=== PATIENT | female | born 1930 | race Caucasian/White ===

== ENCOUNTER 2018-05-04 14:55 | Emergency (ER) | payer OTHER ==
[~2018-05-04 14:55] MED LIST: LEVO25TA9 PO
== END 2018-05-04 17:17 | disposition home or self-care (01) ==
LOC: EDH 14:55
DX: S63.91XA Sprain of unspecified part of right wrist and hand, initial encounter (principal); S51.811A Laceration without foreign body of right forearm, initial encounter; I48.91 Unspecified atrial fibrillation; I50.9 Heart failure, unspecified; W01.0XXA Fall on same level from slipping, tripping and stumbling without subsequent striking against object, initial encounter; Y93.01 Activity, walking, marching and hiking; Y92.89 Other specified places as the place of occurrence of the external cause; Y99.8 Other external cause status
CPT/HCPCS: 73110; 73130